=== PATIENT | female | born 1945 | race Caucasian/White ===

== ENCOUNTER 2017-02-01 16:37 | Emergency (ER) | payer MEDICARE, OTHER ==
[2017-02-01 17:40] VITALS: RESP 20; O2SAT 96
[2017-02-01 17:49] VITALS: BP 161/80; PULSE 81; TEMP 97.8
== END 2017-02-01 18:48 | disposition home or self-care (01) | DRG 563 ==
LOC: ED 16:37
DX: S52.572A Other intraarticular fracture of lower end of left radius, initial encounter for closed fracture (principal); W19.XXXA Unspecified fall, initial encounter
CPT/HCPCS: 73110; 99283